=== PATIENT | male | born 2000 | race African-American/Black ===

== ENCOUNTER → 2023-06-03 | Outpatient (CLI) | payer OTHER | END | disposition home or self-care (01) | LOC: PPH VACUNA | PROVIDERS: ATTEND Emergency Medicine Pediatric Emergency Medicine | DX: Z23 Encounter for immunization (principal) ==

== ENCOUNTER 2024-03-21 08:00 | Outpatient (CLI) | payer OTHER | END 2024-03-21 08:10 | disposition home or self-care (01) | LOC: PPH VACUNA 08:00 | PROVIDERS: ATTEND Emergency Medicine Pediatric Emergency Medicine | DX: Z23 Encounter for immunization (principal) ==

== ENCOUNTER 2024-06-14 06:22 | Emergency (ER) | payer OTHER ==
[~2024-06-14] VITALS: Ht 180.3 cm; Wt 103.4 kg
[2024-06-14 06:44] VITALS: BP 145/82; O2SAT 98
[2024-06-14] MEDS ORDERED: KETOROLAC TROMETHAMINE 60 MG VIAL IM ONE ×2 (08:30→08:55)
[2024-06-14] MEDS ORDERED: CHLORASEPTIC M1 EAC1 MM (08:40)
[2024-06-14] MEDS ORDERED: NYAMYC15 GM TP (08:40)
== END 2024-06-14 09:41 | disposition home or self-care (01) ==
LOC: ER 06:23
DX: J02.9 Acute pharyngitis, unspecified (principal); B37.0 Candidal stomatitis; Z87.09 Personal history of other diseases of the respiratory system